=== PATIENT | female | born 1965 ===

== ENCOUNTER → 2018-07-02 18:31 | Outpatient (REF) | payer MEDICARE, SELFPAY | LOC: LAB 18:31 | PROVIDERS: Visit Provider Specialist | DX: J39.9 Disease of upper respiratory tract, unspecified (principal) ==

== ENCOUNTER → 2018-07-02 21:00 | Outpatient (REF) | payer MEDICARE, SELFPAY | LOC: LAB 21:00 | PROVIDERS: Visit Provider Specialist | DX: J34.89 Other specified disorders of nose and nasal sinuses (principal) | CPT/HCPCS: 87070; 87075; 87077; 87186; 87205 ==